=== PATIENT | male | born 1965 | race Caucasian/White ===

== ENCOUNTER 2021-04-29 10:17 | Inpatient (IN) ==
[2021-04-29 11:39] LABS: Basophils % 0.1 %; Eosinophils % 0.4 %; Hematocrit 23.6 % (37.5-50.1); Hemoglobin 7.3 g/dL (12.9-16.9); Immature Granulocytes % 0.8 % (0-4); Lymphocytes # 0.3 K/mcL (0.6-4.6); Lymphocytes % 2.9 %; Mean Corpuscular HGB Conc 30.9 g/dL (31.6-35.5); Mean Corpuscular Hemoglobin 26.4 pg (28.0-33.3); Mean Corpuscular Volume 85.2 fL (83.0-100.0); Mean Platelet Volume 11.4 fL (9.4-12.4); Monocytes # 1.2 K/mcL (0.0-1.3); Neutrophils # 9.6 K/mcL (1.6-8.9); Nucleated Red Blood Cells 0.2 /100 WBC (0); Platelet Count 200 K/mcL (140-400); Red Blood Count 2.77 M/mcL (4.19-5.50); Red Cell Distribution Width 16.7 % (11.5-14.5); Segmented Neutrophils % 84.8 %; White Blood Count 11.3 K/mcL (4.3-11.1)
[2021-04-29 12:01] LABS: Carbon Dioxide 22 mEq/L (23-29); Chloride 89 mEq/L (98-107); Glucose 121 mg/dL (70-105); Potassium 4.2 mEq/L (3.5-5.1); Sodium 121 mEq/L (136-145); Troponin I < 0.03 ng/mL (< 0.04); eGFR For African Americans > 60 (> 60); eGFR For Non-African Americans > 60 (> 60)
[2021-04-29 12:36] LABS: BUN/Creatinine Ratio 4 (6-26); Blood Urea Nitrogen 3 mg/dL (6-20); Osmolality,Calculated 250 (280-300)
[2021-04-29 14:34] LABS: INR 1.4; Prothrombin Time 15.8 Seconds (9.4-12.1)
[2021-04-29] MEDS ORDERED: *HR* LORazepam 1 MG TABLET PO PRN (14:57)
[2021-04-29] MEDS ORDERED: *HR* LORazepam 2 MG/ML VIAL IVP ONE (14:58)
[2021-04-29] MEDS ORDERED: Naloxone 0.4 MG/ML INJ IVP PRN (14:59)
[2021-04-29] MEDS ORDERED: Ondansetron 4 MG/2 ML VIAL IVP PRN (14:59)
[2021-04-29] MEDS ORDERED: *HR* LORazepam 2 MG/ML VIAL IVP PRN ×2 (15:04)
[2021-04-29 15:31] LABS: Alanine Aminotransferase 80 Units/L (7-52); Albumin 2.7 g/dL (3.5-5.7); Albumin/Globulin Ratio 0.7 (1.1-2.2); Alkaline Phosphatase 339 Units/L (34-104); Aspartate Amino Transferase 148 Units/L (13-39); Globulin 3.8 g/dL (2.4-3.5); Total Protein 6.5 g/dL (6.4-8.9)
[2021-04-29 15:39] LABS: Creatinine,Urine 50 mg/dL; Sodium, Urine < 10.0 mEq/L
[2021-04-29] MEDS: Albumin 25% 25gram/100mL 25 GM/100 ML IV.SOLN IVPB SCH ×2 (17:36→23:41)
[2021-04-29] MEDS: cefTRIAXone 1,000 MG in 0.9 % Sodium Chloride Mini Bag 100 ML IVPB SCH (17:37)
[2021-04-29] MEDS: Thiamine (B-1) 100 MG, Folic Acid 1 MG, MVI, adult with vitamin K 10 ML in 0.9 % Sodi... IVPB SCH (19:06)
[2021-04-29] MEDS: 0.9 % Sodium Chloride 1,000 ML IVC SCH (19:06)
[2021-04-29] MEDS ORDERED: Lactulose Oral Soln 20 GM/30 ML UDC PO SCH (21:00)
[2021-04-29] MEDS: FLUoxetine 20 MG CAPSULE PO SCH (21:13)
[2021-04-29] MEDS: Lactulose Oral Soln 20 GM/30 ML UDC PO SCH (21:13)
[2021-04-29 22:16] LABS: BUN/Creatinine Ratio 5 (6-26); Blood Urea Nitrogen 3 mg/dL (6-20); Calcium 7.7 mg/dL (8.6-10.3); Carbon Dioxide 21 mEq/L (23-29); Chloride 94 mEq/L (98-107); Glucose 113 mg/dL (70-105); Osmolality,Calculated 257 (280-300); Potassium 3.9 mEq/L (3.5-5.1); Sodium 125 mEq/L (136-145); eGFR For African Americans > 60 (> 60); eGFR For Non-African Americans > 60 (> 60)
[2021-04-29] MEDS: *HR* LORazepam 2 MG/ML VIAL IVP PRN (23:40)
[2021-04-30 03:17] LABS: Mean Corpuscular HGB Conc 31.1 g/dL (31.6-35.5); Mean Corpuscular Hemoglobin 26.3 pg (28.0-33.3); Mean Corpuscular Volume 84.8 fL (83.0-100.0); Mean Platelet Volume 11.6 fL (9.4-12.4); Platelet Count 160 K/mcL (140-400); Red Blood Count 2.24 M/mcL (4.19-5.50); Red Cell Distribution Width 17.3 % (11.5-14.5); White Blood Count 7.8 K/mcL (4.3-11.1)
[2021-04-30 03:21] LABS: Hemoglobin 5.9 g/dL (12.9-16.9)
[2021-04-30 03:26] LABS: Alanine Aminotransferase 59 Units/L (7-52); Albumin 2.9 g/dL (3.5-5.7); Alkaline Phosphatase 265 Units/L (34-104); Aspartate Amino Transferase 112 Units/L (13-39); BUN/Creatinine Ratio 5 (6-26); Bilirubin,Total 1.9 mg/dL (0.3-1.0); Blood Urea Nitrogen 3 mg/dL (6-20); Calcium 7.8 mg/dL (8.6-10.3); Carbon Dioxide 22 mEq/L (23-29); Chloride 95 mEq/L (98-107); Glucose 102 mg/dL (70-105); Magnesium 1.5 mg/dL (1.6-2.6); Osmolality,Calculated 259 (280-300); Phosphorous 3.4 mg/dL (2.7-4.5); Potassium 3.6 mEq/L (3.5-5.1); Sodium 126 mEq/L (136-145); Total Protein 5.9 g/dL (6.4-8.9); eGFR For African Americans > 60 (> 60); eGFR For Non-African Americans > 60 (> 60)
[2021-04-30] MEDS ORDERED: 0.9 % Sodium Chloride 250 ML ONE (05:51)
[2021-04-30] MEDS: 0.9 % Sodium Chloride 1,000 ML IVC SCH ×3 (06:04→20:39)
[2021-04-30] MEDS ORDERED: Pantoprazole 40 MG VIAL IVP ONE (07:16)
[2021-04-30] MEDS: Albumin 25% 25gram/100mL 25 GM/100 ML IV.SOLN IVPB SCH ×3 (08:45→17:30)
[2021-04-30] MEDS: FLUoxetine 20 MG CAPSULE PO SCH ×2 (09:03→20:40)
[2021-04-30] MEDS: cefTRIAXone 1,000 MG in 0.9 % Sodium Chloride Mini Bag 100 ML IVPB SCH (09:04)
[2021-04-30] MEDS: Lactulose Oral Soln 20 GM/30 ML UDC PO SCH ×2 (09:04→20:39)
[2021-04-30] MEDS: Pantoprazole 40 MG VIAL IVP SCH ×2 (09:05→17:30)
[2021-04-30 13:16] LABS: Hematocrit 23.6 % (37.5-50.1); Hemoglobin 7.2 g/dL (12.9-16.9); Mean Corpuscular HGB Conc 30.5 g/dL (31.6-35.5); Mean Corpuscular Hemoglobin 26.7 pg (28.0-33.3); Mean Corpuscular Volume 87.4 fL (83.0-100.0); Mean Platelet Volume 11.5 fL (9.4-12.4); Platelet Count 165 K/mcL (140-400); Red Cell Distribution Width 16.7 % (11.5-14.5); White Blood Count 7.9 K/mcL (4.3-11.1)
[2021-04-30 15:36] LABS: Glucose,Peritoneal Fluid 105 mg/dL (No Ref Range); LDH,Peritoneal Fluid 87 Units/L (No Ref Range); Total Protein,Peritoneal Fluid < 2.0 g/dL
[2021-04-30 15:43] LABS: RBC,Peritoneal Fluid < 2000 RBC/mcL
[2021-04-30 17:08] LABS: Appearance of Peritoneal Fl CLEAR (Clear)
[2021-04-30] MEDS: Thiamine (B-1) 100 MG, Folic Acid 1 MG, MVI, adult with vitamin K 10 ML in 0.9 % Sodi... IVPB SCH (17:30)
[2021-04-30] MEDS ORDERED: Pantoprazole 40 MG VIAL IVP SCH (18:00)
[2021-04-30] MEDS: *HR* LORazepam 2 MG/ML VIAL IVP PRN (19:29)
[2021-04-30] MEDS ORDERED: Furosemide 20 MG/2 ML VIAL IVP ONE (23:51)
[2021-05-01] MEDS: Albumin 25% 25gram/100mL 25 GM/100 ML IV.SOLN IVPB SCH ×3 (02:26→18:29)
[2021-05-01] MEDS ORDERED: Furosemide 20 MG/2 ML VIAL IVP ONE ×2 (04:45→21:36)
[2021-05-01] MEDS: Pantoprazole 40 MG VIAL IVP SCH (05:16)
[2021-05-01 08:01] LABS: Hematocrit 21.9 % (37.5-50.1); Mean Corpuscular Hemoglobin 27.5 pg (28.0-33.3); Mean Corpuscular Volume 85.9 fL (83.0-100.0); Mean Platelet Volume 11.6 fL (9.4-12.4); Platelet Count 176 K/mcL (140-400); Red Blood Count 2.55 M/mcL (4.19-5.50); Red Cell Distribution Width 16.9 % (11.5-14.5); White Blood Count 9.6 K/mcL (4.3-11.1)
[2021-05-01 08:08] LABS: Alanine Aminotransferase 53 Units/L (7-52); Albumin 2.8 g/dL (3.5-5.7); Alkaline Phosphatase 235 Units/L (34-104); Aspartate Amino Transferase 110 Units/L (13-39); BUN/Creatinine Ratio 5 (6-26); Bilirubin,Total 2.1 mg/dL (0.3-1.0); Blood Urea Nitrogen 2 mg/dL (6-20); Calcium 7.8 mg/dL (8.6-10.3); Carbon Dioxide 22 mEq/L (23-29); Chloride 100 mEq/L (98-107); Globulin 2.9 g/dL (2.4-3.5); Glucose 97 mg/dL (70-105); Osmolality,Calculated 268 (280-300); Potassium 3.5 mEq/L (3.5-5.1); Sodium 131 mEq/L (136-145); Total Protein 5.7 g/dL (6.4-8.9); eGFR For African Americans > 60 (> 60); eGFR For Non-African Americans > 60 (> 60)
[2021-05-01] MEDS: Lactulose Oral Soln 20 GM/30 ML UDC PO SCH ×2 (08:41→19:59)
[2021-05-01] MEDS: FLUoxetine 20 MG CAPSULE PO SCH ×2 (08:41→19:59)
[2021-05-01] MEDS ORDERED: *HR* Propofol 200 MG/20 ML VIAL IVP ONE ×2 (10:39→10:41)
[2021-05-01] MEDS ORDERED: Lidocaine -MPF 2% 5 ML VIAL ONE (10:39)
[2021-05-01] MEDS: Thiamine (B-1) 100 MG, Folic Acid 1 MG, MVI, adult with vitamin K 10 ML in 0.9 % Sodi... IVPB SCH (18:29)
[2021-05-01] MEDS: *HR* LORazepam 2 MG/ML VIAL IVP PRN (18:36)
[2021-05-02] MEDS: Albumin 25% 25gram/100mL 25 GM/100 ML IV.SOLN IVPB SCH ×3 (02:35→16:57)
[2021-05-02] MEDS: *HR* LORazepam 2 MG/ML VIAL IVP PRN (02:36)
[2021-05-02 08:01] LABS: Hematocrit 21.9 % (37.5-50.1); Hemoglobin 6.6 g/dL (12.9-16.9); Mean Corpuscular HGB Conc 30.1 g/dL (31.6-35.5); Mean Corpuscular Hemoglobin 26.1 pg (28.0-33.3); Mean Corpuscular Volume 86.6 fL (83.0-100.0); Mean Platelet Volume 10.9 fL (9.4-12.4); Platelet Count 160 K/mcL (140-400); Red Blood Count 2.53 M/mcL (4.19-5.50); Red Cell Distribution Width 16.7 % (11.5-14.5); White Blood Count 10.8 K/mcL (4.3-11.1)
[2021-05-02 08:20] LABS: BUN/Creatinine Ratio 4 (6-26); Blood Urea Nitrogen 2 mg/dL (6-20); Carbon Dioxide 23 mEq/L (23-29); Chloride 101 mEq/L (98-107); Glucose 131 mg/dL (70-105); Osmolality,Calculated 278 (280-300); Sodium 135 mEq/L (136-145); eGFR For African Americans > 60 (> 60); eGFR For Non-African Americans > 60 (> 60)
[2021-05-02] MEDS ORDERED: 0.9 % Sodium Chloride 250 ML IVC SCH (09:00)
[2021-05-02] MEDS: Folic Acid 1 MG TABLET PO SCH (10:05)
[2021-05-02] MEDS: FLUoxetine 20 MG CAPSULE PO SCH ×2 (10:05→19:44)
[2021-05-02] MEDS: Multivit/Ca/Min/Fe/FA 1 TAB TABLET PO SCH (10:05)
[2021-05-02] MEDS: Thiamine (B-1) 100 MG TABLET PO SCH (10:05)
[2021-05-02] MEDS: Lactulose Oral Soln 20 GM/30 ML UDC PO SCH ×2 (10:05→19:45)
[2021-05-02 15:20] LABS: Hematocrit 25.4 % (37.5-50.1); Mean Corpuscular HGB Conc 31.5 g/dL (31.6-35.5); Mean Corpuscular Hemoglobin 27.5 pg (28.0-33.3); Mean Corpuscular Volume 87.3 fL (83.0-100.0); Mean Platelet Volume 10.9 fL (9.4-12.4); Platelet Count 168 K/mcL (140-400); Red Blood Count 2.91 M/mcL (4.19-5.50); Red Cell Distribution Width 16.2 % (11.5-14.5); White Blood Count 12.2 K/mcL (4.3-11.1)
[2021-05-02 15:29] LABS: BUN/Creatinine Ratio 4 (6-26); Blood Urea Nitrogen 2 mg/dL (6-20); Calcium 8.3 mg/dL (8.6-10.3); Carbon Dioxide 23 mEq/L (23-29); Chloride 103 mEq/L (98-107); Glucose 140 mg/dL (70-105); Osmolality,Calculated 280 (280-300); Potassium 3.2 mEq/L (3.5-5.1); Sodium 136 mEq/L (136-145); eGFR For African Americans > 60 (> 60); eGFR For Non-African Americans > 60 (> 60)
[2021-05-02] MEDS: Furosemide 20 MG TABLET PO SCH (18:14)
[2021-05-03 02:24] LABS: Hematocrit 25.8 % (37.5-50.1); Hemoglobin 8.1 g/dL (12.9-16.9); Mean Corpuscular HGB Conc 31.4 g/dL (31.6-35.5); Mean Corpuscular Hemoglobin 27.8 pg (28.0-33.3); Mean Corpuscular Volume 88.7 fL (83.0-100.0); Mean Platelet Volume 11.4 fL (9.4-12.4); Platelet Count 189 K/mcL (140-400); Red Blood Count 2.91 M/mcL (4.19-5.50); Red Cell Distribution Width 16.6 % (11.5-14.5); White Blood Count 13.9 K/mcL (4.3-11.1)
[2021-05-03 02:45] LABS: Alanine Aminotransferase 47 Units/L (7-52); Albumin 3.6 g/dL (3.5-5.7); Albumin/Globulin Ratio 1.2 (1.1-2.2); Alkaline Phosphatase 206 Units/L (34-104); Aspartate Amino Transferase 100 Units/L (13-39); BUN/Creatinine Ratio 4 (6-26); Bilirubin,Total 2.5 mg/dL (0.3-1.0); Blood Urea Nitrogen 2 mg/dL (6-20); Calcium 8.6 mg/dL (8.6-10.3); Carbon Dioxide 20 mEq/L (23-29); Chloride 103 mEq/L (98-107); Globulin 2.9 g/dL (2.4-3.5); Glucose 153 mg/dL (70-105); Magnesium 1.5 mg/dL (1.6-2.6); Osmolality,Calculated 279 (280-300); Phosphorous 2.3 mg/dL (2.7-4.5); Potassium 3.6 mEq/L (3.5-5.1); Sodium 135 mEq/L (136-145); Total Protein 6.5 g/dL (6.4-8.9); eGFR For African Americans > 60 (> 60); eGFR For Non-African Americans > 60 (> 60)
[2021-05-03] MEDS: *HR* LORazepam 2 MG/ML VIAL IVP PRN (03:07)
[2021-05-03] MEDS: Thiamine (B-1) 100 MG TABLET PO SCH (08:40)
[2021-05-03] MEDS: Multivit/Ca/Min/Fe/FA 1 TAB TABLET PO SCH (08:40)
[2021-05-03] MEDS: FLUoxetine 20 MG CAPSULE PO SCH (08:40)
[2021-05-03] MEDS: Furosemide 20 MG TABLET PO SCH (08:40)
[2021-05-03] MEDS: Lactulose Oral Soln 20 GM/30 ML UDC PO SCH (08:40)
[2021-05-03] MEDS: Folic Acid 1 MG TABLET PO SCH (08:40)
[2021-05-03 10:57] VITALS: BP 133/80; PULSE 120; TEMP 99.9; O2SAT 91
[2021-05-03 22:40] LABS: Fluid Source for Albumin PERITONEAL
== END 2021-05-03 13:10 | disposition home or self-care (01) | DRG 432 ==
LOC: EMEROOARM 10:17 → 2ANU 13:29 → SUATTDRO 13:29 → 2ANU 15:16
PROVIDERS: ADMIT Family Medicine; ATTEND Internal Medicine
PROC: ENDOEBX (2021-05-01 11:00)

== ENCOUNTER 2021-08-16 17:12 | Observation (INO) ==
[2021-08-16] MEDS ORDERED: 0.9 % Sodium Chloride 1,000 ML IVC ONE (17:53)
[2021-08-16] MEDS ORDERED: *HR* LORazepam 2 MG/ML VIAL IVP ONE (17:53)
[2021-08-16] MEDS ORDERED: Ondansetron 4 MG/2 ML VIAL IVP ONE (17:53)
[2021-08-16] MEDS ORDERED: Pantoprazole 40 MG VIAL IVP ONE (17:53)
[2021-08-16] MEDS ORDERED: Famotidine 20 MG/2 ML VIAL IVP ONE (17:54)
[2021-08-16 18:05] LABS: Basophils % 0.1 %; Eosinophils % 0.1 %; Hematocrit 26.7 % (37.5-50.1); Hemoglobin 8.9 g/dL (12.9-16.9); Immature Granulocytes % 0.6 % (0-4); Lymphocytes # 0.6 K/mcL (0.6-4.6); Lymphocytes % 4.3 %; Mean Corpuscular HGB Conc 33.3 g/dL (31.6-35.5); Monocytes # 0.5 K/mcL (0.0-1.3); Monocytes % 3.9 %; Neutrophils # 11.8 K/mcL (1.6-8.9); Platelet Count 197 K/mcL (140-400); Red Blood Count 3.71 M/mcL (4.19-5.50); Red Cell Distribution Width 20.2 % (11.5-14.5); White Blood Count 12.9 K/mcL (4.3-11.1)
[2021-08-16 18:13] LABS: INR 1.5; Prothrombin Time 17.1 Seconds (9.4-12.1)
[2021-08-16 18:15] LABS: Activated Partial Thrombo Time 35.5 Seconds (26.0-36.0)
[2021-08-16 18:32] LABS: Alanine Aminotransferase 32 Units/L (7-52); Albumin 2.6 g/dL (3.5-5.7); Albumin/Globulin Ratio 0.7 (1.1-2.2); Alkaline Phosphatase 233 Units/L (34-104); Aspartate Amino Transferase 83 Units/L (13-39); BUN/Creatinine Ratio 12 (6-26); Bilirubin,Total 1.4 mg/dL (0.3-1.0); Blood Urea Nitrogen 8 mg/dL (6-20); Calcium 8.4 mg/dL (8.6-10.3); Carbon Dioxide 23 mEq/L (23-29); Chloride 86 mEq/L (98-107); Globulin 3.6 g/dL (2.4-3.5); Glucose 203 mg/dL (70-105); Lipase 34 Units/L (11-82); Osmolality,Calculated 254 (280-300); Potassium 4.2 mEq/L (3.5-5.1); Sodium 120 mEq/L (136-145); Total Protein 6.2 g/dL (6.4-8.9); eGFR For African Americans > 60 (> 60); eGFR For Non-African Americans > 60 (> 60)
[2021-08-16] MEDS ORDERED: Lactulose Oral Soln 20 GM/30 ML UDC PO ONE (18:44)
[2021-08-16] MEDS ORDERED: Naloxone 0.4 MG/ML INJ IVP PRN (19:41)
[2021-08-16] MEDS ORDERED: *HR* LORazepam 2 MG/ML VIAL IVP PRN ×3 (20:54)
[2021-08-16] MEDS: Thiamine (B-1) 100 MG TABLET PO SCH (21:24)
[2021-08-16] MEDS: Folic Acid 1 MG TABLET PO SCH (21:24)
[2021-08-16] MEDS ORDERED: Acetaminophen 325 MG TABLET PO PRN (21:25)
[2021-08-16] MEDS ORDERED: Ondansetron 4 MG/2 ML VIAL IVP PRN (21:33)
[2021-08-16] MEDS ORDERED: Ipratropium/Albuterol Neb 3 ML IH PRN (22:07)
[2021-08-16] MEDS: Beer can PO SCH (22:42)
[2021-08-16 23:32] LABS: Albumin 2.3 g/dL (3.5-5.7); BUN/Creatinine Ratio 16 (6-26); Blood Urea Nitrogen 9 mg/dL (6-20); Calcium 8.2 mg/dL (8.6-10.3); Carbon Dioxide 24 mEq/L (23-29); Chloride 90 mEq/L (98-107); Glucose 106 mg/dL (70-105); Osmolality,Calculated 251 (280-300); Potassium 3.7 mEq/L (3.5-5.1); Sodium 121 mEq/L (136-145); eGFR For African Americans > 60 (> 60); eGFR For Non-African Americans > 60 (> 60)
[2021-08-17] MEDS ORDERED: Dextrose 4 GM Chewable Tablets PO PRN ×2 (01:53)
[2021-08-17] MEDS ORDERED: *HR* Dextrose 50 % in Water (Syg) 50 ML SYRINGE IVP PRN (01:53)
[2021-08-17] MEDS ORDERED: D5% in Water 1,000 ML IVC PRN (01:53)
[2021-08-17 05:49] LABS: Immature Granulocytes % 0.5 % (0-4)
[2021-08-17 05:51] LABS: Basophils % 0.1 %; Eosinophils # 0.3 K/mcL (0.0-0.6); Eosinophils % 2.4 %; Hematocrit 23.4 % (37.5-50.1); Hemoglobin 8.2 g/dL (12.9-16.9); Immature Platelets 3.8 % (1.1-6.1); Lymphocytes % 8.6 %; Mean Corpuscular Hemoglobin 24.9 pg (28.0-33.3); Mean Corpuscular Volume 71.1 fL (83.0-100.0); Mean Platelet Volume 10.6 fL (9.4-12.4); Monocytes # 1.4 K/mcL (0.0-1.3); Monocytes % 11.7 %; Neutrophils # 9.1 K/mcL (1.6-8.9); Platelet Count 118 K/mcL (140-400); Red Blood Count 3.29 M/mcL (4.19-5.50); Red Cell Distribution Width 19.9 % (11.5-14.5); Segmented Neutrophils % 76.7 %; White Blood Count 11.9 K/mcL (4.3-11.1)
[2021-08-17 06:43] LABS: BUN/Creatinine Ratio 15 (6-26); Blood Urea Nitrogen 9 mg/dL (6-20); Calcium 8.5 mg/dL (8.6-10.3); Carbon Dioxide 26 mEq/L (23-29); Chloride 90 mEq/L (98-107); Glucose 90 mg/dL (70-105); Osmolality,Calculated 254 (280-300); Potassium 3.8 mEq/L (3.5-5.1); Sodium 123 mEq/L (136-145); eGFR For African Americans > 60 (> 60); eGFR For Non-African Americans > 60 (> 60)
[2021-08-17] MEDS: Beer can PO SCH ×3 (08:34→16:08)
[2021-08-17] MEDS: Nicotine 21 MG PATCH.TD24 TD SCH (10:47)
[2021-08-17] MEDS: Lactulose Oral Soln 20 GM/30 ML UDC PO SCH ×2 (10:48→20:15)
[2021-08-17] MEDS: Folic Acid 1 MG TABLET PO SCH (10:48)
[2021-08-17] MEDS: Thiamine (B-1) 100 MG TABLET PO SCH (10:48)
[2021-08-17] MEDS ORDERED: Acetaminophen 325 MG TABLET PO PRN (14:52)
[2021-08-17 20:22] VITALS: BP 117/72; TEMP 98.6
[2021-08-17] MEDS: *HR* OxyCODONE Immed Rel 5 MG TABLET PO PRN (20:24)
[2021-08-18 04:35] VITALS: PULSE 78; O2SAT 93
[2021-08-18] MEDS: *HR* OxyCODONE Immed Rel 5 MG TABLET PO PRN (04:37)
[2021-08-18] MEDS: Nicotine 21 MG PATCH.TD24 TD SCH (07:39)
[2021-08-18] MEDS: Beer can PO SCH ×2 (07:39→11:01)
[2021-08-18] MEDS: Folic Acid 1 MG TABLET PO SCH (07:39)
[2021-08-18] MEDS: Lactulose Oral Soln 20 GM/30 ML UDC PO SCH (07:39)
[2021-08-18] MEDS: Thiamine (B-1) 100 MG TABLET PO SCH (07:39)
== END 2021-08-18 12:19 | disposition hospice, home (50) ==
LOC: 2NENU 17:12 → EMEROOARM 17:12 → SUATTDRO 19:07 → 2NENU 20:03
PROVIDERS: ADMIT Internal Medicine; ATTEND Internal Medicine